=== PATIENT | male | born 2000 | race Caucasian/White ===

== ENCOUNTER 2024-03-11 20:59 | Emergency (ER) | payer MEDICAID ==
[~2024-03-11] VITALS: Ht 162.6 cm; Wt 67.0 kg
[2024-03-11 21:10] VITALS: BP 110/56; RESP 18; TEMP 98; O2SAT 100
[2024-03-11 21:12] VITALS: PULSE 89
[2024-03-11] MEDS: ONDANSETRON 4MG ODT PO ONE (21:55)
[2024-03-11 22:46] LABS: CLARITY URINE CLEAR (CLEAR); COLOR URINE DARK YELLOW (YELLOW); GLUCOSE URINE NEGATIVE (NEGATIVE); KETONES URINE TRACE (NEGATIVE); LEUKOCYTE ESTERASE URINE NEGATIVE (NEGATIVE); NITRITE URINE NEGATIVE (NEGATIVE); OCCULT BLOOD URINE NEGATIVE (NEGATIVE); PROTEIN URINE TRACE (NEGATIVE); UROBILINOGEN URINE 0.2 E.U./dL (0.2-1.0)
[2024-03-11 22:54] LABS: HEMOGLOBIN. 16.5 g/dL (14.0-18.0); MEAN CORPUSCULAR HEMOGLOBIN 29.2 pg (28.0-32.0); MEAN CORPUSCULAR HGB CONC 35.2 g/dL (31.0-37.0); MEAN CORPUSCULAR VOLUME 83.1 fL (80.0-94.0); MEAN PLATELET VOLUME 8.9 fl (7.4-10.4); PLATELET 216 x1000/uL (130-400); RED BLOOD CELL COUNT 5.66 mill/uL (4.7-6.1); RED CELL DISTRIBUTION WIDTH 13.1 % (11.6-14.6); WHITE BLOOD COUNT 10.4 x1000/uL (4.5-11.0)
[2024-03-11 22:55] LABS: DIFFERENTIAL COMMENT 1
[2024-03-11 23:02] LABS: CHLORIDE 105 mEq/L (98-107); POTASSIUM 3.8 mEq/L (3.5-5.1); SODIUM 138 mEq/L (136-145)
[2024-03-11 23:03] LABS: CALCIUM 10.8 mg/dL (8.7-10.4); CARBON DIOXIDE 26 mEq/L (21-32)
[2024-03-11 23:06] LABS: RBC URINE NONE SEEN /hpf (0-2); WBC URINE NONE SEEN /hpf (0-2)
[2024-03-11 23:07] LABS: BACTERIA URINE NONE SEEN; SQUAMOUS EPITHELIAL CELL URINE RARE /lpf (RARE/1+)
[2024-03-11 23:08] LABS: GLUCOSE 98 mg/dL (70-105)
[2024-03-11 23:09] LABS: UREA NITROGEN BLOOD 10 mg/dL (9-23)
[2024-03-11 23:10] LABS: ALANINE AMINOTRANSFERASE 18 IU/L (10-49); ALBUMIN 5.6 g/dL (3.2-4.8); ASPARTATE AMINOTRANSFERASE 20 IU/L (<34); BILIRUBIN DIRECT 0.9 mg/dL (<=3.0)
[2024-03-11 23:11] LABS: BILIRUBIN TOTAL 3.2 mg/dL (0.1-1.0); PROTEIN TOTAL 8.3 g/dL (6.0-8.3)
[2024-03-11 23:16] LABS: PLATELET ESTIMATE NORMAL
== END 2024-03-12 00:29 | disposition home or self-care (01) ==
LOC: ER 20:59
DX: A08.4 Viral intestinal infection, unspecified (principal)
CPT/HCPCS: 99283; 80076; 80048; 81003; 83690; 85025; 36415; Q0162

== ENCOUNTER 2024-04-23 18:17 | Emergency (ER) | payer MEDICAID ==
[~2024-04-23] VITALS: Ht 160 cm; Wt 54.4 kg
[2024-04-23 18:42] VITALS: O2SAT 99
[2024-04-23] MEDS ORDERED: CLIN-194 MT (22:20)
[2024-04-23 23:59] VITALS: BP 116/69; PULSE 64; RESP 16; TEMP 37.00296; O2SAT 99
== END 2024-04-24 00:04 | disposition home or self-care (01) ==
LOC: ER 18:17
DX: L03.213 Periorbital cellulitis (principal)
CPT/HCPCS: 99283

== ENCOUNTER 2025-08-21 00:44 | Emergency (ER) | payer MEDICAID ==
[~2025-08-21] VITALS: Ht 162.6 cm; Wt 61.4 kg
[~2025-08-21 00:44] MED LIST: CLIN-194 MT
[2025-08-21 00:48] VITALS: BP 111/67; TEMP 36.8; O2SAT 100
[2025-08-21 00:55] VITALS: PULSE 83; RESP 16; O2SAT 100
[2025-08-21] MEDS: ONDANSETRON HCL 4MG/2ML INJ IM ONE (01:46)
[2025-08-21] MEDS ORDERED: ONDA4TAB50 MT (01:59)
== END 2025-08-21 02:26 | disposition home or self-care (01) ==
LOC: ER 00:44
DX: R11.2 Nausea with vomiting, unspecified (principal)
CPT/HCPCS: 99283; 96372; J2405